=== PATIENT | male | born 1980 | race Caucasian/White ===

== ENCOUNTER 2016-11-11 08:57 | Day surgery (SDC) | payer OTHER ==
[2016-11-07 12:50] VITALS: BMI 29.0
[2016-11-11] MEDS ORDERED: PROPOFOL 20 ML ONE ×5 (09:14→12:06)
[2016-11-11] MEDS ORDERED: ceFAZolin SODIUM 1 GM VIAL ONE (09:15)
[2016-11-11] MEDS ORDERED: KETOROLAC TROMETHAMINE 30 MG/1 ML VIAL ONE (09:17)
[2016-11-11] MEDS ORDERED: ONDANSETRON 4 MG/2 ML VIAL ONE (09:17)
[2016-11-11] MEDS ORDERED: DEXAMETHASONE SOD PHOSPHATE 4 MG/1 ML VIAL ONE (09:17)
[2016-11-11] MEDS ORDERED: DEXAMETHASONE SOD PHOSPHATE/PF 10 MG/ML SDV ONE (10:11)
[2016-11-11] MEDS ORDERED: ROPIVACAINE HCL 0.5% 30ML VIAL ONE (10:11)
[2016-11-11] MEDS ORDERED: MIDAZOLAM HCL 2 MG/2 ML SINGLE DOSE VIAL ONE ×4 (10:11→11:27)
[2016-11-11] MEDS ORDERED: BUPIVACAINE HCL/EPINEPHRINE/PF 30 ML VIAL IJ ONE (10:49)
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
[2016-11-11] MEDS ORDERED: ESMOLOL HCL 10 ML ONE (12:00)
[2016-11-11] MEDS ORDERED: EPINEPHrine 1:1,000 1 MG/1 ML - 30ML VIAL (INJECTION) ONE (12:33)
[2016-11-11] MEDS ORDERED: oxyCODONE HCL 5 MG TABLET PO PRN ×2 (12:50→13:14)
[2016-11-11] MEDS ORDERED: oxyCODONE HCL 10 MG SUSTAINED ACTING TABLET PO ONE (12:50)
--- NOTE | 2016-11-11 12:54 | DS ---
Physical Examination Vital Signs: Vital Signs Temperature 98.9 F 11/11/16 09:42 Pulse Rate 80 11/11/16 09:42 Respiratory Rate 16 11/11/16 09:42 Blood Pressure 138/96 11/11/16 09:42 O2 Sat by Pulse Oximetry (%) 97 11/11/16 09:50 Discharge Summary Reason For Visit: LEFT SHOULDER INSTABILITY Current Active Problems Left shoulder pain (Acute) Condition: Good - Instructions Diet, Activity, Other Instructions: Post Operative Instructions: Shoulder Arthroscopy Dr Tc Nobles 1. Pain following a Shoulder Arthroscopy is variable and can be significant. Some patients will have more pain than others. You have been provided with a prescription for medication that contains a narcotic. You are not allowed to drive while on this medication. You should NOT take Tylenol (Acetaminophen) when taking the pain medication ( it will result in an overdose). Feel free to take medications such as Ibuprofen or Naprosyn in addition to the pain medicine if you do not have any problems with the NSAID class of medications. 2. Apply ice to the shoulder for 15 minutes every hour. You may continue this for as many days as necessary. 3. You may find sleeping on an incline (reclining chair) to be more comfortable for the first few days. 4. You must remain in your sling at all times except when showering. The only exception to this is to allow you to stretch your elbow a few times a day to prevent your hand and forearm from swelling. 5. You are not to use your arm to reach for anything, lift anything or carry anything until instructed otherwise. 6. You may remove the bandages in 48 hours. You may shower at that point. 7. Place band-aids on the sutures after your shower.Do not put any creams or lotions on the incision until after the sutures are removed. 8. Please call the office to schedule a visit to have your sutures removed. 9. If for any reason you believe you may have an infection or are concerned, please feel free to call me. I can be reached through our office number 24 hours a day. 10. Please call our office with any questions; we will review the surgical findings during your post-operative visit. Disposition: HOME - Home Medications Comprehensive Discharge Medication List: Ambulatory Orders Alprazolam [Xanax] 1 mg PO TID PRN 11/07/16 Oxycodone Sr [Oxycontin] 10 mg PO TID 11/07/16
--- NOTE | 2016-11-11 12:54 | OP ---
Operative Note - Note: Operative Date: 11/11/16 Pre-Operative Diagnosis: LEft shoulder glenoid fracture, anterior labral tear Operation: LSA, glenoid fx repair, labral repair. Post-Operative Diagnosis: Same as Pre-op Surgeon: Tc Nobles Anesthesia: General Operative Report Dictated: Yes
[2016-11-11] MEDS ORDERED: LACTATED RINGERS SOLUTION 1,000 ML IV SCH (13:15)
--- NOTE | 2016-11-11 15:14 | SURG ---
Surgery [employer] Wiring Technician Note [employer] W[employer] Technician: Anneliese Sandoval PA-C Date of Service: 11/11/16 Diagnosis: Left shoulder glenoid fracture, anterior labral tear Procedure: LSA, glenoid fx repair, labral repair. I was present for the entirety of the operative procedure. For further detail, please refer to operative report. Visit type - Case Type Case Type: Scheduled Admission - New patient This patient is new to me today: Yes Date on this admission: 11/11/16
[2016-11-11 18:39] VITALS: BP 148/84; PULSE 88; TEMP 98
--- NOTE | 2016-11-14 15:25 | PATH ---
Surgical Pathology Report Patient Name: EVGENY MATA Med. Rec. #: [id number] /Age/Gender: 1980 (Age: 36) / M Account: [id number] Location: [facility] AM[facility] Taken: 11/11/2016 Received: 11/11/2016 Reported: 11/14/2016 Physicians: Tc Nobles M.D. Specimen(s) Received LEFT SHOULDER SHAVINGS Clinical History Left shoulder instability Final Diagnosis SHOULDER, LEFT, ARTHROSCOPIC SHAVINGS: FIBROSYNOVIAL TISSUE, CARTILAGE AND BONE. Electronically Signed Samantha Davis M.D. Gross Description Received in formalin, labeled "left shoulder shavings," is a 2.0 x 1.0 x 0.2 cm aggregate of alfredo soft tissue fragments. The formalin is filtered and the specimen is entirely submitted in one cassette. /11/11/2016 saudi11/11/2016
== END 2016-11-11 15:15 | disposition home or self-care (01) ==
LOC: FASU 08:57
PROVIDERS: ATTEND Orthopaedic Surgery
PROC: 0LB24ZZ Excision of Left Shoulder Tendon, Percutaneous Endoscopic Approach (ICD-10-PCS; 2016-11-11)
PROC: 0RJK4ZZ Inspection of Left Shoulder Joint, Percutaneous Endoscopic Approach (ICD-10-PCS; 2016-11-11)
PROC: 0RQK4ZZ Repair Left Shoulder Joint, Percutaneous Endoscopic Approach (ICD-10-PCS; principal; 2016-11-11 11:52)
DX: S42.142A Displaced fracture of glenoid cavity of scapula, left shoulder, initial encounter for closed fracture (principal); M75.122 Complete rotator cuff tear or rupture of left shoulder, not specified as traumatic; M25.312 Other instability, left shoulder; X58.XXXA Exposure to other specified factors, initial encounter; Y93.9 Activity, unspecified; Y92.9 Unspecified place or not applicable; Y99.9 Unspecified external cause status
CPT/HCPCS: 88304-TC; 94760